=== PATIENT | female | born 1935 | race Caucasian/White ===

== ENCOUNTER 2016-05-05 05:53 | Day surgery (SDC) | payer MEDICARE, OTHER ==
[2016-05-05] MEDS ORDERED: LACTATED RINGERS 1,000 ML ONE (07:09)
--- NOTE | 2016-05-05 08:57 | OP ---
DATE OF PROCEDURE: 05/05/16 PREOPERATIVE DIAGNOSIS: 1. Left lower quadrant pain. POSTOPERATIVE DIAGNOSIS: 1. Sigmoid diverticulosis. 2. Internal hemorrhoids. PROCEDURE: 1. Colonoscopy. SURGEON: Anand Ahn MD. COMPLICATIONS: None apparent. BLOOD LOSS: None. MEDICATIONS: Monitored anesthesia care. DESCRIPTION OF PROCEDURE: Informed consent was obtained prior to sedation. The preprocedure cardiopulmonary assessment was satisfactory. The patient was placed in the left lateral decubitus position and was sedated. A digital rectal exam was unremarkable. The tip of the Olympus colonoscope was inserted in the rectum and guided over to the cecum. The cecum was identified by locating the ileocecal valve and appendiceal orifice. The mucosa of the cecum, ascending colon, hepatic flexure, transverse colon, splenic flexure, descending colon and sigmoid colon was closely examined. Direct and retroflexed views of the rectum were obtained. The prep was good. The exam was significant for uninflamed sigmoid diverticulosis and internal hemorrhoids. There was no inflammation or other pathology seen to account for any significant left lower quadrant pain. RECOMMENDATIONS: 1. The patient should not need any further colonoscopy for colon cancer screening in the future. 2. I would like her to continue daily fiber and continue probiotics. #[id number] cc: Ganga Kay MD MTDD
[2016-05-05 09:27] VITALS: BP 134/84; TEMP 97.8; O2SAT 98
[2016-05-05] MEDS ORDERED: PROPOFOL 200 MG/20 ML VIAL IV ONE (12:00)
== END 2016-05-05 09:30 | disposition home or self-care (01) ==
LOC: AMB 05:53
PROVIDERS: ATTEND Internal Medicine Gastroenterology
DX: R10.32 Left lower quadrant pain (principal); K57.30 Diverticulosis of large intestine without perforation or abscess without bleeding; K64.8 Other hemorrhoids; I10 Essential (primary) hypertension; Z88.2 Allergy status to sulfonamides; Z88.8 Allergy status to other drugs, medicaments and biological substances; Z79.82 Long term (current) use of aspirin; Z79.899 Other long term (current) drug therapy
CPT/HCPCS: 00810; 45378; J3490; J7120

== ENCOUNTER → 2016-10-08 | Outpatient (CLI) | payer MEDICARE, OTHER | END | disposition home or self-care (01) | LOC: GMAB 10:40 | PROVIDERS: ATTEND Family Medicine | DX: D47.2 Monoclonal gammopathy (principal) ==

== ENCOUNTER → 2017-03-18 | Outpatient (CLI) | payer MEDICARE, OTHER | END | disposition home or self-care (01) | LOC: GMAB 11:42 | PROVIDERS: ATTEND Family Medicine | DX: I10 Essential (primary) hypertension (principal) ==

== ENCOUNTER → 2017-07-25 | Outpatient (CLI) | payer MEDICARE, OTHER ==
--- NOTE | 2017-07-27 14:23 | MAM ---
EXAM DESCRIPTION: 3D Screening BILATERAL : Digital Mammography. CLINICAL HISTORY: 82 years Female SCREEN . No complaints. No family history breast cancer. Postmenopausal. Has taken HRT 5 or more years ago. COMPARISON: 2-D digital screening bilateral studies 07/31/2015 and 07/25/2014.. Prior reports are not available. TECHNIQUE: Bilateral CC and MLO projection full-field images, 3-D tomosynthesis digital mammographic technique. Also bilateral synthesized CC/ MLO full-field images. CAD not utilized. FINDINGS: The breast parenchymal density pattern is: Heterogeneously dense breast tissue, which may obscure small masses. No skin thickening or nipple retraction bilateral solitary microcalcifications. Focal asymmetry lateral to the right nipple is stable compared to prior studies. No new focal, stellate mass or density, focal asymmetry , and no suspicious microcalcifications bilaterally. Stable mammograms compared to prior studies, taking into account differences in mammographic technique IMPRESSION: BI-RADS CATEGORY: 2 - BENIGN FINDINGS. FOLLOW UP: Routine digital bilateral screening, one year interval from July 2017. Written communication explaining the IMPRESSION and follow-up, will be mailed to the patient and referring health care provider. According to the [employer], yearly mammograms are recommended starting at age 40 and continuing as long as a woman is in good health. Any breast change noted on a breast self-exam should be reported promptly to the patient's healthcare provider. Breast MRI is recommended for women with an approximately 20-25% or greater lifetime risk of breast cancer, including women with a strong family history of breast or ovarian cancer and women who have been treated for Hodgkin's disease. A negative mammographic report should not delay tissue diagnosis in patients with significant clinical history or physical findings. Extremely dense breast tissue limits the sensitivity of digital mammography. Electronically signed by: Elton Weller MD 07/27/2017 2:22 PM CDT
== END ==
LOC: MAMMO 14:30
PROVIDERS: ATTEND Family Medicine
DX: Z12.31 Encounter for screening mammogram for malignant neoplasm of breast (principal)

== ENCOUNTER → 2017-10-06 | Outpatient (CLI) | payer MEDICARE, OTHER | LOC: GMAE 16:59 | PROVIDERS: ATTEND Family Medicine | DX: D47.2 Monoclonal gammopathy (principal) ==

== ENCOUNTER → 2017-12-16 | Outpatient (CLI) | payer MEDICARE, OTHER ==
--- NOTE | 2017-12-16 16:21 | RAD ---
EXAM DESCRIPTION: Pelvis CLINICAL HISTORY: PAIN IN RIGHT HIP COMPARISON: None. TECHNIQUE: AP pelvis FINDINGS: Degenerative changes are observed in the lower lumbar spine. The pelvis is osteopenic. No fracturing is detected. The right proximal femur is intact. Left femur is also unremarkable. IMPRESSION: Unremarkable pelvis. No fracturing is detected. Electronically signed by: Axel Pop MD 12/16/2017 4:19 PM CDT
--- NOTE | 2017-12-16 16:22 | RAD ---
EXAM DESCRIPTION: Hip,Right 2 Views CLINICAL HISTORY: PAIN IN RIGHT HIP COMPARISON: None. TECHNIQUE: 2 views right FINDINGS: Degenerative changes are observed in the right sacroiliac joint. The right hip is unremarkable. No evidence of fracturing is seen. No pelvic injury is seen. IMPRESSION: Mild degenerative changes are observed in the right sacroiliac joint. The hip is unremarkable. Electronically signed by: Axel Pop MD 12/16/2017 4:20 PM CDT
== END ==
LOC: RAD 08:34
PROVIDERS: ATTEND Orthopaedic Surgery
DX: M25.551 Pain in right hip (principal)

== ENCOUNTER → 2018-02-06 | Outpatient (CLI) | payer MEDICARE, OTHER ==
--- NOTE | 2018-02-07 11:16 | MRI ---
MRI right hip without contrast INDICATION: Right hip pain constant no specific injury TECHNIQUE: MR imaging right hip standard protocol FINDINGS: Mild nonspecific edema in the right buttock subcutaneous question previous injections in this area. Mild osteoarthrosis of both hips. Bilateral fatty and volumetric atrophy of the gluteus minimus and medius. Partial fusion of the L5-S1 disc space spontaneous versus postoperative Up to grade 4 chondral fissuring anterior superior acetabulum with adjacent nondisplaced degenerative labral tear not unexpected for age. Interstitial partial tears of the gluteal tendons right hip especially gluteus minimus fairly high grade with adjacent mild trochanteric bursal edema. No retraction Cam morphology femoral necks suggesting chronic femoral acetabular impingement No hamstring rupture or retraction. No osteonecrosis or fracture. IMPRESSION: Fairly high-grade partial tear gluteus minimus tendon right hip with tendinopathy and lower grade partial tear gluteus medius with adjacent mild trochanteric bursitis Mild osteoarthrosis of both hips Bilateral gluteal muscle fatty marbling and volumetric atrophy Nondisplaced superior and anterior superior labral tear right hip associated with the osteoarthrosis and chondrosis Electronically signed by: Manny Bradshaw MD 02/07/2018 11:14 AM [facility]
== END ==
LOC: MRI 11:00
PROVIDERS: ATTEND Orthopaedic Surgery
DX: S76.312A Strain of muscle, fascia and tendon of the posterior muscle group at thigh level, left thigh, initial encounter (principal); M16.0 Bilateral primary osteoarthritis of hip

== ENCOUNTER → 2018-04-13 | Outpatient (CLI) | payer MEDICARE, OTHER | LOC: GMAE 10:56 | PROVIDERS: ATTEND Family Medicine | DX: I10 Essential (primary) hypertension (principal) ==

== ENCOUNTER → 2018-10-06 | Outpatient (CLI) | payer MEDICARE, OTHER | LOC: GMAE 10:29 | PROVIDERS: ATTEND Family Medicine | DX: D47.2 Monoclonal gammopathy (principal) ==

== ENCOUNTER → 2019-09-06 | Outpatient (CLI) | payer MEDICARE, OTHER ==
--- NOTE | 2019-09-12 14:25 | MAM ---
History: Well woman exam. Date of exam: 09/06/2019 Services provided: Bilateral full field digital screening mammography with kash. CAD, the images were reviewed with R2 computer aided detection. FINDINGS: Glandular tissue contains scattered areas of fibroglandular densities. Comparison with 2018 film. No dominant mass, architectural distortion or clustered microcalcification. IMPRESSION: Benign exam Recommendation: Annual mammography BIRAD CATEGORY: 2 BENIGN FINDINGS NEGATIVE Exam findings and recommendations will be sent to the patient. Electronically signed by: Toya Holt MD 09/12/2019 2:24 PM CDT Workstation: [id number]
== END ==
LOC: MAMMO 13:30
PROVIDERS: ATTEND Family Medicine
DX: Z12.31 Encounter for screening mammogram for malignant neoplasm of breast (principal)